=== PATIENT | male | born 1960 | race Two or more races ===

== ENCOUNTER → 2023-12-02 13:02 | Outpatient (REF) | payer BC, SELFPAY | LOC: DHCBS MAIN 13:02 | PROVIDERS: ATTENDING PHYSICIAN Internal Medicine Cardiovascular Disease; FAMILY PHYSICIAN Family Medicine | DX: R00.2 Palpitations (principal) | CPT/HCPCS: 93306 ==

== ENCOUNTER → 2024-10-03 06:16 | Day surgery (SDC) | payer BC, SELFPAY | LOC: GI 06:16 | PROVIDERS: ATTENDING PHYSICIAN Internal Medicine Gastroenterology | DX: Z12.11 Encounter for screening for malignant neoplasm of colon (principal); K63.5 Polyp of colon; K57.30 Diverticulosis of large intestine without perforation or abscess without bleeding; K64.8 Other hemorrhoids | CPT/HCPCS: 45380; 88305 ==

== ENCOUNTER → 2025-02-22 08:23 | Outpatient (REF) | payer BC, SELFPAY | LOC: HWRCS 08:23 | PROVIDERS: ATTENDING PHYSICIAN Internal Medicine Cardiovascular Disease; FAMILY PHYSICIAN Family Medicine | DX: R06.09 Other forms of dyspnea (principal); I25.10 Atherosclerotic heart disease of native coronary artery without angina pectoris; I21.3 ST elevation (STEMI) myocardial infarction of unspecified site | CPT/HCPCS: 78452; 93017; A9500 ==